=== PATIENT | female | born 1985 | race Caucasian/White ===

== ENCOUNTER 2025-01-01 06:22 | Day surgery (SDC) | payer OTHER, SELFPAY ==
[2025-01-01] VITALS (7 sets, daily range): BP systolic 118–142; BP diastolic 78–87; PULSE 53–83; RESP 14–16; TEMP 36.8–36.9; O2SAT 100; BMI 21.8
[2025-01-01 06:49] LABS: Ur HCG Qualitative* Negative (Negative)
[2025-01-01] MEDS: SODIUM CHLORIDE 0.9 % (FLUSH) 10 ML SYRINGE IVF (06:50)
[2025-01-01] MEDS: LACTATED RINGERS 1000 ML 1,000 ML 100 ML IV ×2 (06:55→09:10)
--- NOTE | 2025-01-01 07:25 | SUR.PREOP ---
TIME?OUT:?0725 PT/RN/MDA?VERIFICATION?OF?SURGICAL?SITE-LEFT FOOT,?PROCEDURE,?NERVE BLOCK AND?CONSENT OBTAINED?PRIOR?TO?INVASIVE?PROCEDURE.
[2025-01-01] MEDS: MIDAZOLAM HCL 1 MG/ML inj IVP (07:26)
--- NOTE | 2025-01-01 07:32 | W.PM.PODPROC ---
Date of Procedure: 01/01/25 Time Seen by Provider: 07:32 Surgeon: Lottie Valerio DPM Co-Surgeon: Mega Blanca DPM Pre-op Diagnosis: 1. Left foot bunion 2. Left foot first tarsometatarsal joint instability Post-op Diagnosis: 1. Left foot bunion 2. Left foot first tarsometatarsal joint instability Type of Procedure: 1. Left foot lapidus bunionectomy 2. Left foot bone graft harvest 3. Application of posterior splint, left Procedure Description: The patient was identified prior to being brought back into the operating room using their name and date of as patient identifiers. The intended surgical care plan was then reviewed in detail with the patient as well as rationale for surgery, most common risks, complications, and expected recovery course. The patient was given opportunity to ask questions, which were to the best of my ability. Patient ultimately voiced no questions or concerns and agreed to proceed forward with the surgery as planned. The patient was brought from the preoperative holding area to the operating room, and placed on the operating room table in the supine positions. At this time a timeout was performed by myself and operating room staff to identify the proper patient, site and operation to be performed. A well padded pneumatic ankle tourniquet was applied to the patient's left lower extremity. The left extremity was then scrubbed, prepped and draped in the normal sterile fashion.? The lateral aspect of the calcaneus was penetrated with a large bore needle using standard technique and bone marrow along with chips of cancellous bone within the calcaneus was aspirated in 0.5-cc increments with redirection between each increment until an appropriate volume of bone marrow aspirate was obtained for use with the operative procedure performed. The integrity of the bone marrow aspiration/bone graft site was verified with stress palpation. A surgical incision was made overlying the 1st metatarsal cuneiform joint proximally and extending our over the dorsal medial aspect of the 1st metatarsophalangeal joint.? Incision was made through skin and dissection was then carried deep taking care to identify and retract all vital neural and vascular structures.? The level of the capsular and periosteal tissue overlying the first metartarsophalangeal joint was identified.? A longitudinal linear capsulotomy was performed. A small wedge of capsular tissue was sharply removed. The capsule and periosteum was dissected free from the first metatarsal head.? Attention was then carried deep into the 1st interspace, and the conjoined adductor tendon identified and released. The fibular sesamoid was dissected free from the flexor hallucis brevis tendon and a lateral capsulotomy was performed.? Attention was then directed back over the 1st met-cuneiform joint. Dissection was carried deep down to the level of the deep capsular and periosteal tissue.? A longitudinal linear capsulotomy was then performed and this tissue was reflected to expose the 1st metatarsal cuneiform joint. According to the restaurant hospitality manager's technique using the Lapiplasty system, a sagittal saw was then utilized to resect the articulating cartilage from the medial cuneiform, taking a laterally based wedge to correct for the increased intermetatarsal angle, and the cartilage from the base of the 1st metatarsal. Both sides of the joint were then fenestrated in preparation for fusion and the 1st met-cuneiform was reduced with the clamp system while achieving frontal plane derotation, first ray plantarflexion and intermetatarsal angle reduction. Direct image intensification was utilized to confirm the position and length of our temporary fixation. At this time, two locking plate/screw constructs were used along the medial and dorsal aspect of the arthrodesis site.? Position and deformity correction was once again confirmed under direct image intensification, and was noted to be satisfactory and provide stable rigid internal fixation. Copious irrigation was performed to the surgical site. The deep tissues were approximated with absorbable suture and the skin edges approximated without tension using non-absorbable sutures. Upon release of the pneumatic tourniquet, immediate reperfusion of toes 1 through 5 was noted. A postoperative sir yuli boyce modified dressing consisting of xeroform, ABDs, Kerlix, 4 x 4's, and an JIGNESH bandage was applied to the patient's left foot. A well padded fiberglass splint was then applied keeping the pt's ankle in neutral.? The patient was transferred from the operating room to the post anesthesia care unit with vital signs stable and vascular status intact to the left lower extremity. The patient appeared to tolerate both the procedure and anesthesia well.? Lottie Valerio DPM Anesthesia: MAC and other (pop/saph nerve block) Hemostasis: ankle Estimated blood loss (mL): 5 Implants: Lapiplasty speed plates x 2 Specimens: none sent Disposition: same day
--- NOTE | 2025-01-01 08:56 | P.ANES_ITS ---
Anesthesia Charges Start Date/Time Anesthesia Start Date: 01/01/25 Anesthesia Start Time: 07:36 Stop Date/Time Anesthesia Stop Date: 01/01/25 Anesthesia Stop Time: 09:52 Coding CPT Codes CPT Codes: ANESTH LOWER LEG BONE SURG - 73476 ([id number]) P1 - NORMAL HEALTHY PATIENT, QK - BARREL RAISER 2-4 CNCRNT ANES PROC, QX - INDUSTRIAL DESIGN INTERN SVVida W/ MED DIRECTION
--- NOTE | 2025-01-01 08:56 | W.ANESCHARGE ---
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
--- NOTE | 2025-01-01 08:56 | W.PM.NB ---
Nerve Block Nerve Block Time Seen by Provider: 07:30 Date Seen: 01/01/25 Type of block requested by surgeon for post-operative analgesia: popliteal Side: left Time out performed: Yes Verification of patient name: Yes Verification of date of : Yes Site marking: site marked Name of person performing procedure: Jamie Continuous monitoring Was continuous monitoring of O2 sat, B/P, playground monitor, recorded every 15 minutes?: Yes Procedure Checklist: sterile prep, needles and gloves Ultrasound guided. Images saved: Yes Medications given in 5ml increments after negative aspiration: Marcaine %: 0.25 mL: 20 Needle gauge: 20 Patient tolerated procedure well: Yes Additional comments: Needle noted adjacent to nerve Block Charges Block Charge (with Pro Fee): Sciatic Nerve Use of Ultrasound Machine for Block: Yes- US Guidance/pain block
--- NOTE | 2025-01-01 08:57 | W.PM.NB ---
Nerve Block Nerve Block Time Seen by Provider: 07:30 Date Seen: 01/01/25 Type of block requested by surgeon for post-operative analgesia: adductor canal Side: left Time out performed: Yes Verification of patient name: Yes Verification of date of : Yes Site marking: site marked Name of person performing procedure: Jamie Continuous monitoring Was continuous monitoring of O2 sat, B/P, environmental monitoring specialist, recorded every 15 minutes?: Yes Procedure Checklist: sterile prep, needles and gloves Ultrasound guided. Images saved: Yes Medications given in 5ml increments after negative aspiration: Marcaine %: 0.25 mL: 15 Needle gauge: 20 Patient tolerated procedure well: Yes Block Charges Block Charge (with Pro Fee): Femoral Nerve Use of Ultrasound Machine for Block: Yes- US Guidance/pain block
[2025-01-01] MEDS: BUPIVACAINE 0.25% 30 ML INJECTION (09:28)
--- NOTE | 2025-01-01 09:53 | P.ANES_ITS ---
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
--- NOTE | 2025-01-01 09:53 | W.ANESCHARGE ---
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
== END 2025-01-01 11:24 | disposition home or self-care (01) ==
LOC: OR 06:23
PROVIDERS: Anesthesiology; Visit Provider Podiatrist
PROC: (CPT 28292; principal; 2025-01-01 07:30)
DX: M21.612 Bunion of left foot (principal); M25.375 Other instability, left foot; G89.18 Other acute postprocedural pain
CPT/HCPCS: 28297; 20900; 01462; 01480; 64445; 64447; 73620; 76000; 76942; 81025; 97116; 97161; C1713; J0665; J0690; J1100; J1885; J2250; J2405; J2704; J3010; J3490; J7120